=== PATIENT | male | born 1935 | race Caucasian/White ===

== ENCOUNTER 2017-06-13 01:19 | Emergency (ER) | payer MEDICARE ==
[2017-06-13] MEDS ORDERED: KETOROLAC TROMETHAMINE 60 MG/2 ML VIAL IM ONE ×2 (02:18→02:19)
--- NOTE | 2017-06-13 02:19 | ERNOTE ---
ENT HPI Presenting Symptoms: other - sore throat Time Seen by Provider: 06/13/17 02:09 Source: patient, family Exam Limitations: no limitations - Immun/Allergies/Home Medications Immunizations: IMMUNIZATION HX Immunizations Up to Date Yes History of Influenza Vaccine No Hx Pneumococcal Vaccination Yes Allergies/Adverse Reactions: Allergies Allergy/AdvReac Type Severity Reaction Status Date / Time Penicillins Allergy Verified 06/13/17 01:29 Home Medications: HOME MEDICATIONS ALPRAZolam [Xanax] 0.5 mg PO HS 06/13/17 [Last Taken Unknown] Aspirin [Brad Chewable] 81 mg PO DAILY 06/13/17 [Last Taken Unknown] Nabumetone [Relafen] 500 mg PO BID #10 tablet 06/13/17 [Last Taken Unknown] Valsartan/Hydrochlorothiazide [Diovan Hct 160-25 mg Tablet] 1 each PO DAILY [Last Taken Unknown] cloNIDine [Clonidine] 1 each TD 06/13/17 [Last Taken Unknown] - History of Present Illness Narrative: Pt states he has had a sore throat for about 24 hours. It is worsening and worse laying down Severity: Present: moderate ENT Location: Present: throat Prearrival Treatment: Present: no prearrival treatment Review of Systems - Review of Systems Constitutional: Absent: recent illness, fever EYE: Present: no symptoms reported ENT: Present: See HPI Respiratory: Absent: shortness of breath Cardiology: Absent: chest pain, palpitations Gastrointestinal/Abdominal: Absent: nausea, vomiting Genitourinary: Absent: frequency, dysuria Musculoskeletal: Absent: back pain, muscle pain Skin: Absent: rash, lesions Neurological: Absent: dizziness/light-headedness Endocrine: Present: no symptoms reported Hematologic/Lymphatic: Present: no symptoms reported Psych: Present: no symptoms reported - Patient's Past Medical History Patient History - Cardiac/Respiratory: Hypertension Patient History - Cancer: No Hx of Cancer Patient History - Surgical Procedures: No surgical history Patient History - Other: None - Social History Living Situations: alone Abuse History: No History of abuse Psych History: No pertinent hx Smoking Status: Former smoker Have you smoked in the past 12 months: No Do you dip or chew tobacco: No Alcohol Use: none Drug Use: none - Immunizations Immunizations Up to Date: Yes Hx Pneumococcal Vaccination: Yes History of Influenza Vaccine: No Physical Exam - Physical Exam General Appearance: Present: wd/wn, alert, no apparent distress Head Exam: Present: normal inspection, no evidence of injury Eye Exam: Normal inspection: bilateral Ears, Nose, Throat: Present: nasal congestion, pharyngeal erythema - posterior streaks. Absent: tonsillar swelling Neck: Present: normal inspection, nontender Respiratory: Present: no respiratory distress, normal breath sounds, no accessory muscle use Cardiovascular/Chest: Present: regular rate, rhythm, no murmur, normal peripheral pulses Extremity Exam: Present: normal inspection, non-tender, normal range of motion, no edema Neurological Exam: Present: alert, oriented, normal mood/affect, no motor/ sensory deficits Skin Exam: Present: normal color, warm/dry Lymphatic Exam: Present: no adenopathy ED Progress - Results and Orders Patient's Lab Results:: I have reviewed the patient's lab results. Results and Orders: Laboratory Tests 06/13/17 01:32 Group A Strep Rapid Negative - Vital Signs Patient's Vital Signs:: I have reviewed the patient's vital signs. Vital Signs: Vital Signs 06/13/17 01:23 Temperature 36.9 C Pulse Rate 92 Respiratory 16 Rate Blood Pressure 157/82 O2 Sat by Pulse 98 Oximetry - Progress/Reassessment Chief Complaint: Sore Throat Departure Clinical Impression: Upper respiratory disease - Departure Disposition: Home self-care Condition: Good Instructions: Upper Respiratory Infection, Adult, [id number] Additional Instructions: you may take mucinex 600 mg twice a day for 5-7 days, see your regular doctor if not improving Referrals: Leisa Hernandez MD [Primary Care Provider] - Prescriptions: Nabumetone [Relafen] 500 mg PO BID #10 tablet
[2017-06-13 02:47] VITALS: BP 129/72
== END 2017-06-13 02:58 | disposition home or self-care (01) ==
LOC: ER 01:19
DX: J39.9 Disease of upper respiratory tract, unspecified (principal); I10 Essential (primary) hypertension; Z87.891 Personal history of nicotine dependence